=== PATIENT | male | born 1960 | race Caucasian/White ===

== ENCOUNTER 2019-10-21 15:25 | Outpatient (CLI) | payer OTHER, SELFPAY ==
--- NOTE | ~2019-10-21 | CT_ITS ---
EXAMINATION:CT lung screening DATE: 10/21/2019 15:46 INDICATION: Personal history of tobacco dependence. Current smoker with 45 pack year history. TECHNIQUE: Computed tomography (CT) of the chest was performed without intravenous contrast. Automate d exposure control and iterative reconstruction technique were employed. The dose-length product (DLP ) was 108.32 mGy-cm. COMPARISON: Chest CT 06/18/2007 FINDINGS: Calcified right lung nodules are consistent with old granulomatous disease. There is a 4 mm groundglass nodule in the lingula. No pleural effusion or pneumothorax. The heart size is normal. No pericardial effusion. 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 There is dextroscolios is of mid thoracic spine and levoscoliosis of upper thoracic spine. IMPRESSION: 1. Lung-RADS category 2: Benign appearance or behavior. Continue annual screening with noncontrast lo w-dose chest CT in 12 months. Reviewed, dictated and finalized at location A. IMPRESSION: 1. Lung-RADS category 2: Benign appearance or behavior. Continue annual screeni ng with noncontrast low-dose chest CT in 12 months.
== END 2019-10-21 15:26 | disposition home or self-care (01) ==
LOC: ANHIMG 15:26
PROVIDERS: PCP Internal Medicine; Visit Provider Nurse Practitioner
DX: Z12.2 Encounter for screening for malignant neoplasm of respiratory organs (principal); Z87.891 Personal history of nicotine dependence
CPT/HCPCS: G0297

== ENCOUNTER 2021-02-27 09:25 | Outpatient (CLI) | payer OTHER, SELFPAY ==
--- NOTE | ~2021-02-27 | CT_ITS ---
EXAMINATION:CT lung screening DATE: 02/27/2021 09:43 INDICATION: Tobacco use. Personal history of nicotine dependence. Current smoker with 30 pack year hi story. TECHNIQUE: Computed tomography (CT) of the chest was performed without intravenous contrast. Automate d exposure control and iterative reconstruction technique were employed. The dose-length product (DLP ) was 137.04 mGy-cm. COMPARISON: Chest CT 10/21/2019 FINDINGS: A calcified right lung nodule is consistent with old granulomatous disease. Again seen is a 4 mm nodule in lingula. No pleural effusion. The heart size is normal. 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 No pericardial effusion. There is diffuse hepatic steatosis. There is cervicothoracic de xtroscoliosis, upper thoracic levoscoliosis, and mid thoracic dextroscoliosis. There are numerous seg mentation anomalies in the spine. IMPRESSION: 1. Lung-RADS category 2: Benign appearance or behavior. Continue annual screening with noncontrast lo w-dose chest CT in 12 months. Reviewed, dictated and finalized at location B. [employer] IMPRESSION: 1. Lung-RADS category 2: Benign appearance or behavior. Continue annual screeni ng with noncontrast low-dose chest CT in 12 months.
== END 2021-02-27 09:26 | disposition home or self-care (01) ==
PROVIDERS: PCP Internal Medicine; Visit Provider Nurse Practitioner
DX: Z12.2 Encounter for screening for malignant neoplasm of respiratory organs (principal); Z87.891 Personal history of nicotine dependence
CPT/HCPCS: 71271